=== PATIENT | female | born 1950 ===

== ENCOUNTER 2017-01-10 16:02 | Outpatient (CLI) | payer MEDICARE ==
--- NOTE | 2017-01-11 08:48 | Mammography Report ---
BILATERAL DIGITAL SCREENING MAMMOGRAM with CAD: 01/10/17 16:02:00 CLINICAL: Routine screening. COMPARISON:None. She has not had a mammogram over ten years. FINDINGS: Heterogeneously dense breast, which may obscure small masses.Extensive highly suspicious regional calcifications in a ductal distribution in the upper inner and upper outer left breast. The greatest number are in the upper inner quadrant where there is associated asymmetric density. Numerous left axillary lymph nodes have generally benign morphology with fatty waqar. Similar right axillary lymph nodes. The right breast is negative. IMPRESSION: Extensive highly suspicious left breast calcifications and associated asymmetric densities requiring further workup. BI-RADS CATEGORY: 0 -- Additional Imaging Evaluation Required RECOMMENDATION: Recall for a true lateral view of the left breast and global left breast ultrasound to include the left axilla. ACR BI-RADS MAMMOGRAPHIC CODES: 0 = Needs additional imaging evaluation; 1 = Negative; 2 = Benign; 3 = Probably benign; 4 = Suspicious; 5 = Malignant; 6 = Known biopsy-proven malignancy COMMENT: 1. Dense breast tissue, i.e., adenosis, fibrocystic changes, etc., may obscure an underlying neoplasm. 2. Approximately 10% of cancers are not detected with mammography. 3. A negative mammography report should not delay biopsy if a clinically suspicious mass is present. COMMENT: Patient follow-up letters are generated via our [employer] application.
== END 2017-01-10 16:03 | disposition home or self-care (01) ==
LOC: SPVWC 16:02
PROVIDERS: ATTEND Internal Medicine
DX: Z12.31 Encounter for screening mammogram for malignant neoplasm of breast (principal)
CPT/HCPCS: 77067; G0202